=== PATIENT | female | born 1955 | race Caucasian/White ===

== ENCOUNTER → 2023-10-24 10:00 | Outpatient (REF) | payer MEDICARE, OTHER, SELFPAY | LOC: MRI 3T 10:00 | PROVIDERS: ATTENDING PHYSICIAN Family Medicine; FAMILY PHYSICIAN Internal Medicine | DX: M54.16 Radiculopathy, lumbar region (principal) | CPT/HCPCS: 72148 ==

== ENCOUNTER → 2024-03-26 07:07 | Outpatient (REF) | payer MEDICARE, OTHER, SELFPAY | LOC: RCS 07:07 | PROVIDERS: ATTENDING PHYSICIAN Internal Medicine Cardiovascular Disease; FAMILY PHYSICIAN Family Medicine | DX: R01.1 Cardiac murmur, unspecified (principal); R94.31 Abnormal electrocardiogram [ECG] [EKG]; R55 Syncope and collapse | CPT/HCPCS: 93306 ==

== ENCOUNTER → 2024-05-05 15:31 | Outpatient (REF) | payer MEDICARE, OTHER, SELFPAY | LOC: WDC 15:31 | PROVIDERS: ATTENDING PHYSICIAN Family Medicine | DX: Z12.31 Encounter for screening mammogram for malignant neoplasm of breast (principal) | CPT/HCPCS: 77063; 77067 ==

== ENCOUNTER 2025-02-25 10:28 | Inpatient (IN) | payer MEDICARE, OTHER, SELFPAY ==
[2025-02-25] VITALS (9 sets, daily range): BP systolic 111–146; BP diastolic 50–73; BMI 21.3; BMI 21.0
[2025-02-25 05:35] LABS: Glucose - Point of Care 116 mg/dl (70-99)
--- NOTE | 2025-02-25 05:45 | ED.GENMED ---
History of Present Illness
General
Chief Complaint: Fainting Sensation
Source: patient
Time Seen by Provider: 02/25/25 05:43
History of Present Illness
History of Present Illness:
This patient is a 70-year-old female who states that she has been 'sick' for about 3 weeks. She saw her doctor on Thursday and was diagnosed with a sinusitis and started on Augmentin which she is compliant with. She was starting to improve. Then,
yesterday evening around 5 PM she was assisting a friend to cut the nails of her cat when the cat bit the patient. This happened at the right hand area. She states that the cat is up-to-date on all immunizations. She then noted that she has had
increasing pain at the right wrist/dorsal hand area where she suffered the bite associated with a fever Tmax of 101 and episodes of diaphoresis and lightheadedness. She denied chest pain, shortness of breath, cough, abdominal pain, nausea,
vomiting, urinary symptoms, headache, photophobia, rash, or other complaints. She is up-to-date on her immunizations. She is not a diabetic.
Past History
Past History
ED Past Medical History: Other (Hypercholesterolemia, IBS, depression, PFO, atrial tachycardia) and Other (Previous drug addiction and recovery, hypercholesterolemia, anxiety depression, migraine headache)
Social History
Tobacco: Non-smoker
Alcohol: Former
Drug: Former user
Personal:
Living: alone
Family History
Family History: Negative Diabetes, Hypertension or CAD
Phy Exam
Physical Exam
Physical Exam:
GENERAL: Alert , in no apparent distress
EYE: pupils equal and reactive
NECK: Supple, no significant adenopathy.
ENT: o/p clr, mm slightly dry
CARDIAC: Regular rate and rhythm .
LUNGS: Clear breath sounds bilaterally, no acute respiratory distress, no wheezes/rales/rhonchi
ABDOMEN: Soft, without focal tenderness, no r/g, no cvat
NEUROLOGICAL: Alert and oriented, no focal neuro deficits
SKIN: Warm and dry, skin intact, right dorsal proximal hand area with closed bite wounds, no drainage or bleeding, with associated erythema warmth swelling and mild tenderness to palpation. No fluctuance, streaking, or other abnormalities.
Neurovascular intact.
MUSCULOSKELETAL: No edema, well perfused.
PSYCH: Normal and appropriate interaction.
Course
Orders/Labs/Results
Orders:
Orders
02/25/25 05:43
Electrocardiogram (*1) Urgent
Reason for Study: Other
Other Reason for Exam: sepsis
Cardiac Monitoring- Treatment ONCE
EKG- Treatment ONCE
0.9% Sodium Chloride 1000 ml [Nss] 1,000 ml IV BOLUS
Hand, Right 3 View [CR Hand - Right Min 3 Views] Urgent
Comment:
Reason For Exam: cat bite
02/25/25 05:50
Complete Blood Count/With Diff Urgent
Comprehensive Metabolic Panel Urgent
Blood Culture Q30M
JESSICA Source: Blood/Venous
Specimen Description:
Blood Culture Q30M
JESSICA Source: Blood/Venous
Specimen Description:
Influenza A+B Rapid Molecular Urgent
JESSICA Source: Nasal Swab
Specimen Description:
02/25/25 05:51
COVID-19 Antigen Urgent
Source: Nasal Swab
Lactic Acid Q4H
Comment: CANCEL 2nd LACTIC ACID IF 1st LACTIC ACID IS LESS THAN 2
02/25/25 Breakfast
Regular
02/25/25 06:12
Ampicillin/Sulbactam 3 G [Unasyn] 3 gm 0.9% Sodium Chloride 100 ml [Nss] 100 ml IV NOW
02/25/25 07:35
Urinalysis Reflex To Culture Urgent
Date Specimen was Collected: 02/25/25
Time Specimen was Collected: 07:29
02/25/25 09:15
Osteomd 1 cap PO .TID W/ MEAL
02/25/25 09:22
Admit/Transfer Patient As Directed
Co-Sign Provider:
Level of Care: Inpatient admission
Assign to:: Medical/Surgical
Physician / Group: Lizbet/hospitalist
Diagnosis: Cellulitis
Reason for Hospitalization: Cellulitis
Expected length of stay greater than two midnights?: Yes
ELOS- Estimated Length of Stay in days: 3
I certify the patient meets the requirements for IP care: Yes
PRN Pain Medication Management As Directed
May give lesser potent ordered pain med per pt: Yes
preference::
Protocol:: Medication orders for pain may be administered in a
manner that supports deferring to patient preference
when the pt is:
- Requesting an ordered lesser potent pain medication.
Least to most potent pain medications are defined
as: acetaminophen < NSAID < tramadol < opioids
(morphine, oxycodone, hydromorphone).
- Requesting a lesser dose of the same medication IF
ORDERED.
- Requesting a less intrusive route of administration
if both routes are prescribed by the provider (PO <
IV).
02/25/25 09:23
Code Status As Directed
Resuscitation Status: Full Code
02/25/25 09:26
INFECTIOUS DISEASE CONSULT Routine
Consulting Provider: Natalia Eaton
Was physician already notified: Yes
02/25/25 Lunch
Regular
At Your Request: Full Participation
Does patient need a safe tray?: No
Flush (0.9% Sodium Chloride) [Flush (Nss)] See Dose Instructions IV PER PROTOCOL
02/25/25 10:30
Acetaminophen [Tylenol] 650 mg PO Q6HPRN PRN
Ibuprofen [Motrin] 600 mg PO Q6HPRN PRN
02/25/25 10:30
INFECTIOUS DISEASE CONSULT Routine
Consulting Provider: Natalia Eaton
Was physician already notified: Yes
DX Deep Vein Thrombosis Video Routine
02/25/25 12:00
Ampicillin/Sulbactam 3 G [Unasyn] 3 gm 0.9% Sodium Chloride 100 ml [Nss] 100 ml IV Q6H
02/25/25 16:00
Gabapentin [Neurontin] 200 mg PO TID
02/25/25 18:00
Enoxaparin Sodium [Lovenox] 40 mg SC QPM
Polyethylene Glycol Powder [Miralax] 17 grams PO DAILY
Rosuvastatin Calcium [Crestor] 10 mg PO SA@1800
02/26/25 05:38
Basic Metabolic Panel IN AM
Complete Blood Count/With Diff IN AM
02/26/25 08:00
Escitalopram Oxalate [Lexapro] 20 mg PO DAILY
02/26/25 18:00
Rosuvastatin Calcium [Crestor] 10 mg PO SuTuTh@1800
02/27/25 18:00
Rosuvastatin Calcium [Crestor] 20 mg PO MoWeFr@1800
Abnormal Lab Results
02/25/25 02/25/25
05:33 05:50
RBC 3.85 L 10^6/uL
(4.20-5.40)
Hct 36.4 L %
(37.0-47.0)
MCH 31.9 H pg
(27.0-31.0)
Absolute Neuts (auto) 7.7 H 10^3/uL
(1.4-6.5)
Absolute Lymphs (auto) 0.9 L 10^3/uL
(1.2-3.4)
Absolute Monos (auto) 0.9 H 10^3/uL
(0.1-0.6)
Neutrophils % 80.8 H %
(42.2-75.2)
Lymphocytes % 9.0 L %
(20.5-51.1)
Sodium 134 L mmol/L
(135-145)
BUN 20 H mg/dl
(7-17)
POC Glucose 116 H mg/dl
(70-99)
02/25/25 05:50
02/25/25 05:50
Vital Signs
Initial and Last Documented VS:
Initial Vital Signs
Temp
98.4 F
02/25/25 05:32
Last Documented Vital Signs
Temp Pulse Resp BP Pulse Ox
97.8 F 60 16 132/73 97
02/26/25 15:30 02/26/25 15:30 02/26/25 15:30 02/26/25 15:30 02/26/25 15:30
*Pulse Oximetry
Patient hypoxic: no
*Critical Care Note
Total Time (30-74mins, 75-104mins- exclusive of procedures): Not Applicable
Update Note
Update Note:
Patient presents to the Emergency Department with __fever, sweats, right hand pain
Number and Complexity of Problems Addressed at the Encounter
� Chronic conditions affecting care:
� Acute Exacerbation and/or Progression of Chronic Illness:
� Differential Diagnosis includes: But not limited to cellulitis, bacteremia, abscess, electrolyte disorder, etc. etc.
Amount and/or Complexity of Data to be Reviewed and Analyzed
� I performed an independent evaluation of and my interpretation is:
EKG:read by me, sinus bradycardia, no acute ischemia
CT:
Xrays:read by me, no fb or fx noted
Laboratory Studies:nl wbc, nl hgb, mild L shift noted. lactic wnl. COVID/flu neg
Other:
� Review of other/old records reveals:
� Clinical information was obtained by an independent historian:
� Prescriptions/Medications Considered but not given:
� Further testing considered but not performed:
Risk of Complications and/or Morbidity or Mortality of Patient Management
� Social determinants of health affecting care:
� Discussion with other providers (PCP, Hospitalists, Consultants, etc):
� Escalation of care including admission/observation vs risk of discharge considered:Pt not septic. Suspect area of cat bite rapidly progressive despite po abx. IV abx administered. Will admit, likely observation.
ED Attending Note
-
Portions of this chart may have been created with voice recognition software.� Occasional wrong word or��sound alike� substitutions may have occurred due to the inherent limitations of voice recognition software.
Discharge Plan
Departure
Patient Disposition: Admit
Date of Disposition: 02/25/25
Time of Disposition: 06:54
Admit to: Med/Surg
Presentation/result/management discussed w/ accepting MD/DO: Hospitalist
Condition: Fair
Discharge Problem:
Cat bite, Cellulitis
Interventions
Interventions:
*Risk Screen - Suicide Last Done: 02/25/25 05:32
*General Assessment Last Done: 02/25/25 05:32
*Neglect/Abuse Screening Last Done: 02/25/25 05:32
*ED- Fall Risk Assessment Last Done: 02/25/25 05:32
*ED COVID-19 Vaccine History Last Done: 02/25/25 05:32
*ED Influenza Vaccine History Last Done: 02/25/25 05:32
*Nursing Disposition Last Done: 02/25/25 09:44
ED- Cardiac Assessment Last Done: 02/25/25 08:17
ED- Neurological Assessment Last Done: 02/25/25 08:17
Discharge Date and Time
Discharge Date/Time: 02/25/25 10:30
[2025-02-25 05:59] LABS: Hematocrit 36.4 % (37.0-47.0); Hemoglobin 12.3 g/dL (12.0-16.0); Mean Corp Hgb Conc. 33.8 g/dL (33.0-37.0); Mean Corpuscular Volume 94.5 fL (81.0-99.0); Nucleated Red Blood Cells % 0 %; Platelet Count 178 10^3/uL (130-400); Red Cell Dist. Width 12.9 % (11.5-14.5)
[2025-02-25] MEDS: NSS 1000 IV (05:59)
[2025-02-25 06:16] LABS: ALT (SGPT) 17 U/L (0-35); AST (SGOT) 23 U/L (14-36); Albumin 4.2 g/dl (3.5-5.0); Alkaline Phosphatase 48 U/L (38-126); Blood Urea Nitrogen 20 mg/dl (7-17); Calcium 9.3 mg/dl (8.4-10.2); Carbon Dioxide 29 mmol/L (22-30); Chloride 101 mmol/L (98-107); Estimated Creatinine Clearance 48 ml/min; Glucose 96 mg/dl (70-99); Potassium 4.1 mmol/L (3.5-5.1); Sodium 134 mmol/L (135-145); Total Protein 6.9 g/dl (6.3-8.2); eGFR > 60.00
[2025-02-25 06:25] LABS: COVID-19 Antigen Negative (Negative)
[2025-02-25] MEDS: UNASYN IV ×4 (06:34→23:58)
[2025-02-25 07:41] LABS: Urine Character Clear (Clear)
--- NOTE | 2025-02-25 09:12 | W.PN.UPDATE ---
Update Note
Progress Note Update
Addition to the plan
History of IBS with constipation
Continue gabapentin
MiraLAX daily
History of cold sores
Hold Valtrex
--- NOTE | 2025-02-25 09:43 | EDRN ---
this RN called the receiving unit and notified them that paper report was going to be tubed up
--- NOTE | 2025-02-25 09:50 | CM ---
Patient seen at bedside in ED. Patient states that she lives alone in a town home with several floors. Patient has no DME. Patient plan is for discharge home with either neighbor or daughter to provide transportation. Patient is a retired RN.
Patient plan is for discharge home with no needs. Patient PCP is Dr. Ruggiero and she uses the [facility] on [facility]. CM will continue to follow for discharge planning needs.
Plan; home with no needs anticipated; watch for ID recommendations
[2025-02-25] MEDS: TYLENOL 650 MG PO (11:11)
--- NOTE | 2025-02-25 11:42 | PTCARENOTE ---
Pt received to [facility] via stretcher from ED awake alert and oriented. Suffered cat bite on her right hand/wrist area that got progressively worse over time. Right hand with good radial pulse, red with some swelling . C/o continual ache in that
hand, tyenol given as requested. Denies any other symptoms Uses call [place] appropriately .
--- NOTE | 2025-02-25 12:47 | HPS.HSE ---
Addendum entered and electronically signed by Chris Somers MD 02/25/25 12:57:
I personally performed a history and physical exam of the patient and discussed management with the resident. I reviewed the resident's note and agree with the documented findings and plan of care HPI/CC.
71-year-old female past medical history of hyperlipidemia, IBS, depression, PFO, atrial tachycardia, previous drug addiction/abuse now in recovery, history of alcohol abuse now in recovery, migraine headache who is presenting from home after cat
bite. Patient's been on antibiotics outpatient for sinusitis which was prescribed by primary doctor. Patient was assisting to cut the nails of a cat she was bit. The cat. On the dorsal side of the right hand. 2 different location. Patient
stated she spiked fevers overnight. Cameron generally weak. States the cat is up-to-date with all immunization. States of increasing pain and with fever she decided come into the hospital.
General no acute distress
HEENT neck is supple trachea is midline, normocephalic anicteric
Respiratory nonlabored respiration, on room air
Cardiac regular rhythm
GI soft nondistended
Skin warm, right and dorsal proximal with cat bite area noted. Mild swelling noted. No purulent drainage or blood drainage noted. Mild tender to palpation. Positive radial pulses and ulnar pulses.
Neuro awake alert oriented
Psych calm
Impression
Acute cellulitis of right hand secondary to cat bite
Mild hyponatremia
Hyperlipidemia
History of drug/alcohol use now in recovery
Mood disorder
Plan
Start patient on IV Unasyn
X-ray of the hand noted with soft tissue swelling
Monitor area for worsening erythema lymphangitis
Follow-up on the blood culture results
WBC normal. Trend WBC and fever curve
If with any change in physical examination may need orthopedic input
Consult ID
Patient states she would like to avoid opioids. Continue with Tylenol ibuprofen and ice pack. Recommended right upper extremity elevation
Trend sodium.
Cont gabapentin.
DVT prophylaxis-lovenox
I spent a total of 80 minutes with the patient or on the floor. More than 50% of this time involved counseling and coordination of care.
Original Note:
Family Physician
-
Family Physician: Tara Ruggiero MD
Chief Complaint
-
cat bite
History of Present Illness
70-year-old female with history of hyperlipidemia osteoporosis, GERD presents to the ED complaining of cat bite on her right dorsal hand. Patient reports that she was on amoxicillin for the past 5 days for acute sinusitis. She notes that yesterday
at 5 PM she was assisting a friend to cut the nails of her cat when the cat bit the patient. The cat bit on the dorsal side of the right hand. She states that the cat is up-to-date with all immunizations. Patient experience increasing pain on her
right wrist and dorsal surface of the hand. She checked her temp at home, Tmax of 101 and had episodes of diaphoresis and lightheadedness. She denies chest pain, shortness of breath, cough nausea vomiting headache, rash.
Medical History
Past Medical History
Past Medical History: Reports Other ((Hypercholesterolemia, IBS, depression, PFO, atrial tachycardia) and Other (Previous drug addiction and recovery, hypercholesterolemia, anxiety depression, migraine headache)))
Past Surgical History: Reports None
Social History
Tobacco: Non-smoker
Alcohol: None
Drug: None
Personal: Single
Living: Alone
Employment: Retired
Family History
Family History: Not pertinent
Allergies / Home Medications
Allergies reflects when Allergies were last updated in [facility].
Home Medications with original date entered in [facility]
Allergy/Medication List:
Allergies
Allergy/AdvReac Type Severity Reaction Status Date / Time
simvastatin (From Zocor) Allergy muscle Verified 02/25/25 05:31
aches
Home Medications
escitalopram oxalate 20 mg tablet 20 mg PO DAILY Mental Health/Anxiety 10/16/11
rosuvastatin 10 mg tablet 20 mg PO MOWEFR High Cholesterol 10/16/11
Osteomd 1 cap PO .TID W/ MEAL Supplement 03/20/22
ibuprofen 200 mg tablet (Advil) 400 mg PO PRN PRN pain 03/20/22
valacyclovir 1 gram tablet 1,000 mg PO DAILY cold sores 03/20/22
gabapentin 100 mg capsule 200 mg PO TID Neurological Condition 02/25/25
rosuvastatin 10 mg tablet 10 mg PO SUTUTHSA High Cholesterol 02/25/25
Review of Systems
-
A 12 point ROS was completed and negative except as noted: Yes
Physical Exam
Vital Signs
Vital Signs
Temp Pulse Resp BP Pulse Ox
98.2 F 64 16 144/69 98
02/25/25 10:37 02/25/25 10:37 02/25/25 10:37 02/25/25 10:37 02/25/25 10:37
Physical Exam
General: Comfortable and Conversant
HEENT: NormoCephalic and Anicteric
Respiratory: Clear
Cardiac: S1/S2 and Regular Rhythm
GI: Soft, Non Tender and Non Distended
Musculoskeletal: No Edema
Skin: Warm, Dry and Other (right dorsal proximal hand-mild erythema/swelling, mild tenderness with close bite wounds, no drainage, no bleeding, no fluctuance/streaking. Normal radial pulses)
Neuro: AO x 3
Hematologic/Lymphatic: No Lymphadenopathy
Psych: Calm
Laboratory Results
-
02/25/25 05:50
02/25/25 05:50
Laboratory Results
Lactic Acid Cancelled 02/25/25 09:45
Total Bilirubin 1.1 mg/dl (0.2-1.3) 02/25/25 05:50
AST 23 U/L (14-36) 02/25/25 05:50
ALT 17 U/L (0-35) 02/25/25 05:50
Alkaline Phosphatase 48 U/L (38-126) 02/25/25 05:50
Data Reviewed
-
Diagnostic Radiology: Image Personally Visualized and interpreted, Report Reviewed by me and Discussed with Physician
Lab Data: Labs Reviewed by me and Discussed with Physician
Impression/Plan
-
IMPRESSION:
Acute cellulitis of right hand
Hyponatremia
History of osteoporosis
Hyperlipidemia
History of GERD
History of drug/alcohol use
History of IBS with constipation
PLAN:
Acute cellulitis of right hand
Failed outpatient treatment
Afebrile, normal white count with left shift
Hand x-ray reveals mild soft tissue swelling along the R dorsum of proximal hand. No acute osseous abnormality
Normal lactic acid
Await blood cultures
Start IV Unasyn 3 g Q6
Consult ID
Tylenol, Motrin as needed for fever and pain control
Monitor white count and temperature curve
Hyponatremia
Likely dehydration
Sodium 134
Monitor BMP
History of osteoporosis
Continue alendronate
Hyperlipidemia
Continue rosuvastatin
History of GERD
Continue PPI
History of drug/alcohol abuse
In remission
History of IBS with constipation
Continue gabapentin
Continue miralax daily
Full code
Regular diet
Lovenox
--- NOTE | 2025-02-25 14:20 | CON.ID ---
Consultation
-
Date/Time Consultation Requested: February 25, 2025 2064
Date/Time Consultation Performed: February 25, 2025 1420
Requesting Provider: Dr. Jimmy Escobar
Performing Provider: Dr. Natalia Eaton
Reason for Consultation: cat bite cellulitis
Chief Complaint / Past History
Chief Complaint
Cat bite
History of Present Illness
70-year-old female with history of dyslipidemia who presented to the ED today due to fever after cat bite. Yesterday, she was helping her friend with nail cutting of the friend's cat. The cat then bit her right wrist and forearm. Patient was
already on Augmentin for 5 days for sinusitis. Last night she then developed fever 101 and chills. She also noted her right wrist is swollen with redness streaking up. She therefore came to the hospital. X-ray showed soft tissue swelling. She
is currently on Unasyn. She is up-to-date with tetanus vaccine.
Past History
Additional Past Medical History:
Dyslipidemia
Patent foramen ovale
Migraine headaches
Depression/anxiety
Osteoporosis
Remote history of gastric ulcer/upper GI bleed
Sciatica
History of eating disorder
genital herpes
Former alcohol abuse
Former opioiod abuse
Additional Past Surgical History:
Rectocele s/p Posterior colporrhaphy with perineoplasty
Urethroplasty
Breast biopsy
Allergy History:
simvastatin (From Zocor) Allergy (Verified 02/25/25 05:31)
muscle aches
Medications Reviewed: Yes
Current Antibiotics:
Unasyn
Social History
Tobacco: Non-Smoker
Alcohol: Former
Drug: Former User (Narcotic abuse)
Employment: Retired (Nurse)
Family History
Family History: Not Pertinent
Review of Systems
Review of Systems
General: Fever and Chills; Negative Change in Appetite
HEENT: Negative Sinus Problems or Headache
Cardiovascular: Negative Chest Pain or Dyspnea
Respiratory: Negative Dyspnea
Gasteroenterology: Diarrhea; Negative Nausea or Vomiting
Genital / Urological: Negative Dysuria or Flank Pain
All systems: All other systems were reviewed and were negative
Vital Signs
Temp Pulse Resp BP Pulse Ox
98.2 F 64 16 144/69 98
02/25/25 10:37 02/25/25 10:37 02/25/25 10:37 02/25/25 10:37 02/25/25 10:37
Physical Exam
Physical Exam
Constitutional: No Acute Distress and Comfortable
Eyes: No Conjunctival Hemorrhage and Sclera Anicteric
Cardiovascular: Regular Rate and S1/S2
Pulmonary: Clear
Gastrointestinal: Soft, Non Tender, Non Distended and Normal Bowel Sounds
Genito-Urinary: Negative CVA Tenderness
Extremities: Negative Edema
Musculoskeletal: Other (Right wrist and forearm + edema, mild edema. Puncture wounds are dry, no drainage.)
Neurological: AO x 3
Lab / Diagnostic Study Results
02/25/25 05:50
02/25/25 05:50
Abs Immat Gran (auto) 0.0 10^3/uL (0-0.05) 02/25/25 05:50
Absolute Neuts (auto) 7.7 10^3/uL (1.4-6.5) H 02/25/25 05:50
Absolute Lymphs (auto) 0.9 10^3/uL (1.2-3.4) L 02/25/25 05:50
Absolute Monos (auto) 0.9 10^3/uL (0.1-0.6) H 02/25/25 05:50
Absolute Basos (auto) 0.0 10^3/uL (0-0.2) 02/25/25 05:50
Immature Gran % 0.4 % (0-0.5) 02/25/25 05:50
Neutrophils % 80.8 % (42.2-75.2) H 02/25/25 05:50
Lymphocytes % 9.0 % (20.5-51.1) L 02/25/25 05:50
Monocytes % 9.0 % (1.7-9.3) 02/25/25 05:50
Eosinophils % 0.5 % (0-6) 02/25/25 05:50
Basophils % 0.3 % (0-2) 02/25/25 05:50
Lactic Acid Cancelled 02/25/25 09:45
Microbiology Results
Micro:
02/25/25 05:50 Blood Culture - Pending
Blood/Venous
02/25/25 05:50 Influenza Types A & B (JACI) - Final
Nasal Swab Negative for Influenza A & B, NAAT
Negative results must be combined with clinical observations
and patient history.
Nucleic Acid Amplification test (NAAT)performed on the
[employer] platform.
02/25/25 05:50 Blood Culture - Pending
Blood/Venous
02/25/25 Hand XRAY: No acute osseous abnormality. Mild soft tissue swelling along the dorsum of the proximal hand.
Assessment / Plan
# RUE cat bite cellulitis
-up to date with tetanus vaccine
- Agree with Unasyn.
- keep extremity elevated
- Follow clinically.
[2025-02-25] MEDS: NEURONTIN 200 MG PO ×2 (15:58→21:50)
[2025-02-25] MEDS: LOVENOX 40 MG SC (17:49)
[2025-02-25] MEDS: MIRALAX PO ×2 (17:51→18:07)
[2025-02-25] MEDS: CRESTOR 10 MG PO (18:02)
[2025-02-25] MEDS: MOTRIN 600 MG PO (19:58)
[2025-02-25] MEDS: PEPCID 20 MG PO (21:50)
[2025-02-26] MEDS: MOTRIN 600 MG PO ×3 (04:51→22:04)
[2025-02-26] MEDS: UNASYN IV ×3 (06:23→16:57)
[2025-02-26 07:13] LABS: Hematocrit 33.3 % (37.0-47.0); Hemoglobin 10.9 g/dL (12.0-16.0); Mean Corp Hgb Conc. 32.7 g/dL (33.0-37.0); Mean Corpuscular Volume 96.5 fL (81.0-99.0); Nucleated Red Blood Cells % 0 %; Platelet Count 176 10^3/uL (130-400); Red Cell Dist. Width 13.0 % (11.5-14.5)
[2025-02-26 07:30] VITALS: BP 139/61
[2025-02-26 07:47] LABS: Blood Urea Nitrogen 12 mg/dl (7-17); Calcium 8.5 mg/dl (8.4-10.2); Carbon Dioxide 25 mmol/L (22-30); Chloride 107 mmol/L (98-107); Estimated Creatinine Clearance 55 ml/min; Glucose 96 mg/dl (70-99); Potassium 3.9 mmol/L (3.5-5.1); Sodium 138 mmol/L (135-145); eGFR > 60.00
[2025-02-26] MEDS: MIRALAX 17 GRAMS PO ×2 (08:47→11:03)
[2025-02-26] MEDS: NEURONTIN 200 MG PO ×3 (08:47→22:04)
[2025-02-26] MEDS: LEXAPRO 20 MG PO (08:48)
[2025-02-26 10:27] LABS: Hepatitis C Antibody Negative (Negative)
[2025-02-26] MEDS: VALTREX 1000 MG PO (11:03)
--- NOTE | 2025-02-26 12:36 | W.PN.ID1 ---
Date of Service
Date of Service: February 26, 2025
Today's Communication
Continue Unasyn.
Assessment / Plan
# RUE cat bite cellulitis
-up to date with tetanus vaccine
- Continue Unasyn.
- keep extremity elevated.
- Sonny-wrap R hand to forearm
- Follow clinically.
# Conditions present on admission:
Dyslipidemia
Patent foramen ovale
Migraine headaches
Depression/anxiety
Osteoporosis
Remote history of gastric ulcer/upper GI bleed
Sciatica
History of eating disorder
genital herpes
Former alcohol abuse
Former opioiod abuse
Chief Complaint
-: Cellulitis
Subjective / Review of Systems
She reports hand/wrist worse last night, better this am.
Vital Signs / Physical Exam
Vital Signs
Vital Signs
Temp Pulse Resp BP Pulse Ox
97.8 F 57 16 139/61 95
02/26/25 07:30 02/26/25 07:30 02/26/25 07:30 02/26/25 07:30 02/26/25 07:30
Physical Exam
Constitutional: No Acute Distress
Pulmonary: Clear
Gastrointestinal: Soft, Non Tender and Non Distended
Extremities: Negative Edema (BLE)
Musculoskeletal: Other (RUE: +edema, erythema dorsum of hand to wrist and forearm. Puncture wounds on wrist dry. )
Neurological: AO x 3
Objective Data
Lab Data
Lab Results
02/26/25 05:38
02/26/25 05:38
Estimated Creat Clear 55 ml/min 02/26/25 05:38
Lactic Acid Cancelled 02/25/25 09:45
Total Bilirubin 1.1 mg/dl (0.2-1.3) 02/25/25 05:50
AST 23 U/L (14-36) 02/25/25 05:50
ALT 17 U/L (0-35) 02/25/25 05:50
Alkaline Phosphatase 48 U/L (38-126) 02/25/25 05:50
Most recent labs reviewed.
Micro Results:
02/25/25 05:50 Blood Culture - Preliminary
Blood/Venous No Growth in 24 hours- Final report to follow
02/25/25 05:50 Blood Culture - Preliminary
Blood/Venous No Growth in 24 hours- Final report to follow
02/25/25 05:50 Influenza Types A & B (JACI) - Final
Nasal Swab Negative for Influenza A & B, NAAT
Negative results must be combined with clinical observations
and patient history.
Nucleic Acid Amplification test (NAAT)performed on the
[employer] platform.
02/25/25 Hand XRAY: No acute osseous abnormality. Mild soft tissue swelling along the dorsum of the proximal hand.
--- NOTE | 2025-02-26 12:58 | W.PN.HOSP.TC ---
Today's Communication/Plan
-
IV unayn
follow up on bcx
ID following
Assessment / Plan
Assessment / Plan
General no acute distress
HEENT neck is supple trachea is midline, normocephalic anicteric
Respiratory nonlabored respiration, on room air
Cardiac regular rhythm
GI soft nondistended
Skin warm, right and dorsal proximal with cat bite area noted. Mild swelling and erythema noted. No purulent drainage or blood drainage noted. Mild tender to palpation. Positive radial pulses and ulnar pulses.
Neuro awake alert oriented
Psych calm
#Acute cellulitis of right hand
Afebrile, normal white count with left shift
Hand x-ray reveals mild soft tissue swelling along the R dorsum of proximal hand. No acute osseous abnormality
Normal lactic acid
Preliminary blood cultures remains negative
Continue IV Unasyn 3 g Q6
Tylenol, Motrin as needed for fever and pain control
Monitor white count and temperature curve
Recommend RUE elevation. Ice pack as needed
ID following
#Hyponatremia
Likely dehydration
Resolved
History of osteoporosis
Continue alendronate
Hyperlipidemia
Continue rosuvastatin
History of GERD
Continue Pepcid
History of drug/alcohol abuse
In remission
History of IBS with constipation
Continue gabapentin
Continue miralax daily -takes 34g
History of cold sores
On Valtrex chronically for suppression
DVT ppx-lovenox
Full code
Anticipated Discharge: Within 24 hours
Subjective/Interval History
-
Date of Service: February 26, 2025
Remains with erythema and mild pain
states of mild discomfort
walking around
Objective Data
-
Labs:
Laboratory Results
02/26/25
05:38
WBC 7.6
Hgb 10.9 L
Hct 33.3 L
Plt Count 176
Sodium 138
Potassium 3.9
Chloride 107
Carbon Dioxide 25
BUN 12
Creatinine 0.7
Glucose 96
Calcium 8.5
Vital Signs:
Vital Signs
Temp Pulse Resp BP Pulse Ox
97.8 F 57 16 139/61 95
02/26/25 07:30 02/26/25 07:30 02/26/25 07:30 02/26/25 07:30 02/26/25 07:30
I&O
02/25/25 02/26/25 02/27/25
06:59 06:59 06:59
Intake Total 1679
Balance 1679
[2025-02-26 15:30] VITALS: BP 132/73
[2025-02-26] MEDS: LOVENOX 40 MG SC (16:58)
[2025-02-26] MEDS: CRESTOR 10 MG PO (17:00)
[2025-02-26] MEDS: PEPCID 20 MG PO (22:04)
[2025-02-26 23:28] VITALS: BP 154/67
[2025-02-27] MEDS: UNASYN IV ×3 (00:03→11:57)
[2025-02-27 07:30] VITALS: BP 153/67
[2025-02-27] MEDS: LEXAPRO 20 MG PO (08:16)
[2025-02-27] MEDS: VALTREX 1000 MG PO (08:16)
[2025-02-27] MEDS: NEURONTIN 200 MG PO (08:16)
--- NOTE | 2025-02-27 10:30 | W.PN.ID1 ---
Date of Service
Date of Service: February 27, 2025
Today's Communication
After noon dose Unasyn, can dc home on 10 days of Augmentin 875mg po bid
Assessment / Plan
# RUE cat bite cellulitis, resolving
-up to date with tetanus vaccine
- After noon dose Unasyn, can dc home on 10 days of Augmentin 875mg po bid
# Conditions present on admission:
Dyslipidemia
Patent foramen ovale
Migraine headaches
Depression/anxiety
Osteoporosis
Remote history of gastric ulcer/upper GI bleed
Sciatica
History of eating disorder
genital herpes
Former alcohol abuse
Former opioiod abuse
Chief Complaint
-: Cellulitis
Subjective / Review of Systems
Feels well. Hand much improved.
Vital Signs / Physical Exam
Vital Signs
Vital Signs
Temp Pulse Resp BP Pulse Ox
97.8 F 49 16 153/67 97
02/27/25 07:30 02/27/25 07:30 02/27/25 07:30 02/27/25 07:30 02/27/25 07:30
Physical Exam
Constitutional: No Acute Distress and Comfortable
Cardiovascular: Regular Rate and S1/S2
Pulmonary: Clear
Gastrointestinal: Soft, Non Tender, Non Distended and Normal Bowel Sounds
Musculoskeletal: Other (Left hand edema/erythema decreased. Puncture wounds dry. )
Neurological: AO x 3
Objective Data
Lab Data
Lab Results
02/26/25 05:38
02/26/25 05:38
Estimated Creat Clear 55 ml/min 02/26/25 05:38
Lactic Acid Cancelled 02/25/25 09:45
Total Bilirubin 1.1 mg/dl (0.2-1.3) 02/25/25 05:50
AST 23 U/L (14-36) 02/25/25 05:50
ALT 17 U/L (0-35) 02/25/25 05:50
Alkaline Phosphatase 48 U/L (38-126) 02/25/25 05:50
Most recent labs reviewed.
Micro Results:
02/25/25 05:50 Blood Culture - Preliminary
Blood/Venous No Growth in 48 hours- Final report to follow
02/25/25 05:50 Blood Culture - Preliminary
Blood/Venous No Growth in 48 hours- Final report to follow
02/25/25 05:50 Influenza Types A & B ([facility]) - Final
Nasal Swab Negative for Influenza A & B, NAAT
Negative results must be combined with clinical observations
and patient history.
Nucleic Acid Amplification test (NAAT)performed on the
[employer] platform.
02/25/25 Hand XRAY: No acute osseous abnormality. Mild soft tissue swelling along the dorsum of the proximal hand.
Care Review
Plan reviewed with: Physician (Dr. Cates)
--- NOTE | 2025-02-27 13:07 | W.PN.HOSP.TC ---
Today's Communication/Plan
-
dc
Assessment / Plan
Assessment / Plan
70yo F with PMHX of anxiety, osteoporosis, HLD camre with R wrist cat byte that happened when she cut nails for her neighbor cat. Cat is vaccinated. Seen by ID -improved on Unasyn. ID recommended Augmentin for 10 more days totaling 2 weeks of
infection. Medically stable for d/c home
A/P:
#R wrist cat byte woud
Unasyn to Augmentin for 2 weeks total as per ID
Bcx NTD
#Hyponatremia, mild
#Osteoporosis
#HLD
#GERD
#IBS-c
#Chronic herpes infection
cont home meds
DVT ppx lovenox
Full code
I have spent at least 58min reviewing chart, test results, communication with consultants and providing direct patient care
Anticipated Discharge: Today
Subjective/Interval History
-
Date of Service: February 27, 2025
Objective Data
-
Vital Signs:
Vital Signs
Temp Pulse Resp BP Pulse Ox
97.8 F 49 16 153/67 97
02/27/25 07:30 02/27/25 07:30 02/27/25 07:30 02/27/25 07:30 02/27/25 08:20
I&O
02/26/25 02/27/25 02/28/25
06:59 06:59 06:59
Intake Total 1680 / 1680 1500 / 1500
Balance 1680 / 1680 1500 / 1500
Review of Systems
-
History Source: Patient
All other systems: Reviewed and negative
Physical Exam
-
General: Comfortable
HEENT: Normocephalic
GI: Soft, Nontender and Nondistended
Skin: Other (miniaml redness around R wrist byte sites)
Neuro: Awake, Alert, Oriented and AO x 3
Psych: Calm
--- NOTE | 2025-02-27 13:11 | W.DCSUMMARY ---
Discharge Summary
Discharge Data
Date of Admission: 02/25/25
Date of Discharge: 02/27/25
-
Pending Results: Yes
Additional Pending Results:
Blood cultures
Hospital Course
70yo F with PMHX of anxiety, osteoporosis, HLD camre with R wrist cat byte that happened when she cut nails for her cat. Cat is vaccinated. Seen by ID -improved on Unasyn. ID recommended Augmentin for 10 more days totaling 2 weeks of infection.
MEdcially stable for d/c home
I have spent at least 58min reviewign chart, test results, communication with consultants and providing direct patient care
PAtient was managed for:
#R wrist cat byte woud
#Hyponatremia, mild
#Osteoporosis
#HLD
#GERD
#IBS-c
#Chronic herpes infection
Discharge Plan
-
Patient Disposition: Home (Routine Discharge)
Discharge Diagnosis/Procedures: cat byte
Diet: Regular
Activity: As tolerated
Driving Restrictions: As prior to admission
Referrals:
Tara Ruggiero MD [Family Provider, [facility]]
Prescriptions:
New
amoxicillin-pot clavulanate 875-125 mg tablet
1 tab PO Q12H Qty: 20 0RF
acetaminophen 325 mg Tablet
650 mg PO Q6HPRN PRN (Reason: mild pain/ fever>100.5F) Qty: 60 0RF
Continued
escitalopram oxalate 20 MG tablet
20 mg PO DAILY
rosuvastatin 10 MG tablet
20 mg PO MOWEFR
valacyclovir 1 gram Tablet
1,000 mg PO DAILY
Osteomd
1 cap PO .TID W/ MEAL
Patient Comments:
Vit D 2000 IUs, Ca 325 mg
gabapentin 100 mg Capsule
200 mg PO TID
rosuvastatin 10 mg Tablet
10 mg PO SUTUTHSA
Discontinued
ibuprofen [Advil] 200 mg Tablet
400 mg PO PRN PRN (Reason: pain)
Discharge Orders:
Discharge Patient (As Directed); Ordered 02/27/25
Ordered By: Filiberto Cates
Discharge Date and Time
Print Language: SINHALA
[2025-02-27 13:15] VITALS: BP 144/88
--- NOTE | 2025-02-27 13:45 | CM ---
Pt is cleared for discharge today. Plan is for her daughter or her neighbor to provide transport home.
Plan: Discharge to home with no needs; pt prescribed oral amoxicillin for home.
== END 2025-02-27 13:41 | disposition home or self-care (01) | DRG 603 ==
LOC: 4 WEST ACU 10:28
PROVIDERS: Student in an Organized Health Care Education/Training Program; ADMITTING PHYSICIAN Hospitalist; ATTENDING PHYSICIAN Internal Medicine; CONSULT PHYSICIAN Internal Medicine Infectious Disease; EMERGENCY PHYSICIAN Emergency Medicine; FAMILY PHYSICIAN Family Medicine
DX: L03.113 Cellulitis of right upper limb (principal); E87.1 Hypo-osmolality and hyponatremia; W55.01XA Bitten by cat, initial encounter; M81.0 Age-related osteoporosis without current pathological fracture; E78.00 Pure hypercholesterolemia, unspecified; K21.9 Gastro-esophageal reflux disease without esophagitis; K58.1 Irritable bowel syndrome with constipation; Z11.52 Encounter for screening for COVID-19; F32.A Depression, unspecified; E86.0 Dehydration; F41.9 Anxiety disorder, unspecified; M54.30 Sciatica, unspecified side; Z86.59 Personal history of other mental and behavioral disorders; Z87.11 Personal history of peptic ulcer disease; F10.11 Alcohol abuse, in remission; F11.11 Opioid abuse, in remission
CPT/HCPCS: 73130; 80048; 80053; 81003; 82962; 83605; 85025; 86803; 87040; 87502; 87811; 93005; 96361; 96365; 99285